=== PATIENT | female | born 1980 | race Caucasian/White ===

== ENCOUNTER → 2017-07-22 | Outpatient (REF) | LOC: ZLAB.WCH 18:06 | DX: Z01.89 Encounter for other specified special examinations (principal) ==

== ENCOUNTER 2017-08-03 09:12 | Day surgery (SDC) | payer MEDICAID ==
[2017-08-03] VITALS (7 sets, daily range): BP systolic 107–124; BP diastolic 68–81; PULSE 76–88; TEMP 97.3–97.7
[~2017-08-03] VITALS: Ht 160 cm; Wt 65.4 kg
[2017-08-03] MEDS ORDERED: QVAR0.08 MG/AC IH (09:35)
[2017-08-03] MEDS ORDERED: RT SPIRIVA18 MCG IH (09:35)
[2017-08-03] MEDS ORDERED: SINGULAIR 110 MG/TAB PO (09:35)
[2017-08-03] MEDS ORDERED: CONCERTA36 MG PO (09:36)
[2017-08-03] MEDS ORDERED: WELLBUTRIN XL300 M1 PO (09:36)
[2017-08-03] MEDS ORDERED: PROAIR HFA0.09 MG/AC IH (09:37)
[2017-08-03] MEDS ORDERED: NORCO 325 MG-51 TAB PO (14:17)
== END 2017-08-03 16:00 | disposition home or self-care (01) ==
LOC: SDCO 09:12
DX: K80.10 Calculus of gallbladder with chronic cholecystitis without obstruction (principal); D64.9 Anemia, unspecified; J44.9 Chronic obstructive pulmonary disease, unspecified; F90.9 Attention-deficit hyperactivity disorder, unspecified type; F32.9 Major depressive disorder, single episode, unspecified; F41.9 Anxiety disorder, unspecified; F43.10 Post-traumatic stress disorder, unspecified; F17.210 Nicotine dependence, cigarettes, uncomplicated; Z88.8 Allergy status to other drugs, medicaments and biological substances; Z88.4 Allergy status to anesthetic agent; Z82.49 Family history of ischemic heart disease and other diseases of the circulatory system; Z80.42 Family history of malignant neoplasm of prostate; Z80.1 Family history of malignant neoplasm of trachea, bronchus and lung; Z80.8 Family history of malignant neoplasm of other organs or systems
CPT/HCPCS: J0690; J1100; J1170; J2405; J2550; J2704; J3010; J7120; Q9967